=== PATIENT | male | born 1980 ===

== ENCOUNTER 2017-10-10 14:13 | Observation (INO) | payer SELFPAY ==
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
[2017-10-10] MEDS ORDERED: Sodium Chloride 0.9% 1,000 ML IV SCH (15:45)
[2017-10-10 15:51] LABS: BASO % 0.3 % (0.0-2.0); EOS # 0.1 K/uL (0.0-0.7); EOS % 0.6 % (0.0-4.0); HEMOGLOBIN 16.2 g/dL (12.0-18.0); LYMPH # 1.3 K/uL (1.0-4.3); LYMPH % 12.7 % (20.0-40.0); MEAN CELL VOLUME 87.9 fl (80.0-94.0); MEAN CORPUSCULAR HEMOGLOBIN 30.4 pg (27.0-31.0); MEAN CORPUSCULAR HGB CONC 34.6 g/dL (33.0-37.0); MEAN PLATELET VOLUME 7.5 fl (7.2-11.7); MONO # 0.7 K/uL (0.0-0.8); MONO % 6.9 % (0.0-10.0); NEUT # 7.9 K/uL (1.8-7.0); NEUT % 79.5 % (50.0-75.0); RBC 5.34 Mil/uL (4.40-5.90); WHITE BLOOD COUNT 9.9 K/uL (4.8-10.8)
[2017-10-10 15:56] LABS: SQUAMOUS EPITHIAL < 1 /hpf (0-5); URINE BILIRUBIN NEGATIVE (NEGATIVE); URINE BLOOD MODERATE (NEGATIVE); URINE CLARITY CLEAR (Clear); URINE COLOR YELLOW (YELLOW); URINE GLUCOSE (UA) NEG (Normal); URINE LEUKOCYTE ESTERASE NEG Leu/uL (Negative); URINE PROTEIN NEGATIVE (NEGATIVE); URINE UROBILINOGEN 0.2-1.0 mg/dL (0.2-1.0)
[2017-10-10 16:23] LABS: ALB/GLOB RATIO 1.5 (1.0-2.1); ALBUMIN 4.6 g/dL (3.5-5.0); CALCIUM 9.4 mg/dL (8.4-10.2)
--- NOTE | 2017-10-10 17:20 | CT ---
PROCEDURE: CT Abdomen and Pelvis without intravenous contrast HISTORY: r/o renal stone COMPARISON: None. TECHNIQUE: Helical CT of the abdomen and pelvis was performed without oral or intravenous contrast as per referring physician request Contrast dose: None Radiation dose: Total exam DLP = 262.62 mGy-cm. This CT exam was performed using one or more of the following dose reduction techniques: Automated exposure control, adjustment of the mA and/or kV according to patient size, and/or use of iterative reconstruction technique. FINDINGS: LOWER THORAX: Unremarkable. LIVER: Unremarkable. No gross lesion or ductal dilatation. GALLBLADDER AND BILE DUCTS: Unremarkable. PANCREAS: Unremarkable. No gross lesion or ductal dilatation. SPLEEN: Unremarkable. ADRENALS: Unremarkable. No mass. KIDNEYS AND URETERS: Unremarkable. No hydronephrosis. No solid [id number] right hydroureteronephrosis caused by a 4.2 x 3.6 x 4.6 mm obstructing calculus of the proximal to mid right ureter at the L3 level. Mild right perinephric reaction is identified with the right ureter normal in caliber distal to the calculus. No definite additional radiodense urolithiasis bilaterally. No left-sided obstructive uropathy. . VASCULATURE: Unremarkable. No aortic aneurysm. BOWEL: Unremarkable. No obstruction. No gross mural thickening. APPENDIX: Unremarkable. Normal appendix. PERITONEUM: Unremarkable. No free fluid. No free air. LYMPH NODES: Unremarkable. No enlarged lymph nodes. BLADDER: The urinary bladder is mildly distended but thin walled with no focal nodularity or radiodense urolithiasis. REPRODUCTIVE: Unremarkable. BONES: A minimal potential T12 anterior wedge compression fracture is questioned, indeterminate in age though probably chronic. OTHER FINDINGS: None. IMPRESSION: 1. 4.6 mm calculus is obstructing the proximal to mid right ureter causing [id number] right hydroureteronephrosis including limited right perinephric reaction. No additional radiodense urolithiasis bilaterally including urinary bladder. No left-sided obstructive uropathy. 2. Remainder the examination appears nonacute but is limited in evaluation given lack contrast agents.
[2017-10-10] MEDS ORDERED: Ciprofloxacin 400mg/200ml D5W 400 MG/200 ML BAG IVPB STA (18:55)
[2017-10-10] MEDS ORDERED: HYDROmorphone 1 mg/ml ISec IVP PRN (20:22)
[2017-10-10] MEDS ORDERED: Ciprofloxacin 400mg/200ml D5W 400 MG/200 ML BAG IVPB ONE (20:24)
[2017-10-10] MEDS: Dextrose 5%/0.9% NS 1,000 ML IV SCH (23:04)
[2017-10-11] MEDS: Dextrose 5%/0.9% NS 1,000 ML IV SCH ×2 (12:14→17:52)
[2017-10-11] MEDS ORDERED: Ciprofloxacin 400mg/200ml D5W 400 MG/200 ML BAG IVPB STA (15:19)
[2017-10-11] MEDS ORDERED: Propofol 10 mg/ml Inj (20 ML) ONE (17:30)
[2017-10-11] MEDS ORDERED: Midazolam 2 MG/2 ML VIAL ONE (17:31)
[2017-10-11] MEDS ORDERED: Lidocaine 1% 5ml Abboject IV ONE (17:31)
[2017-10-11] MEDS ORDERED: Lidocaine 2% Jelly (5 ml) TOP ONE (17:32)
[2017-10-11] MEDS ORDERED: Lactated Ringer's 500 ML IV ONE ×2 (18:30→19:00)
[2017-10-11] MEDS ORDERED: HYDROmorphone 0.5 mg/0.5 ml ISec IVP PRN (19:35)
[2017-10-11] MEDS ORDERED: Lactated Ringer's 1,000 ML IV SCH (19:45)
[2017-10-11] MEDS ORDERED: Lactated Ringer's 1,000 ML IV ONE (20:30)
[2017-10-11 23:23] VITALS: PULSE 70
[2017-10-11 23:24] VITALS: BP 120/80; RESP 19; TEMP 97.8
--- NOTE | 2017-10-12 10:15 | RAD ---
HISTORY: postop COMPARISON: Abdomen and pelvis without contrast FINDINGS: BOWEL: Normal. No obstruction. No free air. BONES: Normal. OTHER FINDINGS: A double-J right ureteral stent is in place. The slightly proximal and is partially uncoiled in contrast to to the distal coil appearance A faint calculus on the single oblique view along the proximal right ureteral stent is suggested. This is compatible with the level of CT depicted obstructing right ureteral calculus here IMPRESSION: A double-J right ureteral stent is in place. The slightly proximal and is partially uncoiled - in contrast to the distal coil appearance The proximal core all projects over the expected right renal collecting system and the distal projects over the expected bladder A faint calculus on the single oblique view along the proximal right ureteral stent is suggested. This is compatible with the level of CT depicted obstructing right ureteral calculus here
[2017-10-13 00:20] VITALS: O2SAT 100
--- NOTE | 2017-10-16 08:41 | RAD ---
PROCEDURE: Intraoperative Fluoroscopy. HISTORY: FLUOROSCOPY FINDINGS: Fluoroscopic assistance was provided for right double-J ureteral stent evaluation. Please refer to the operative report from [facility].
--- NOTE | 2017-10-25 08:43 | OP ---
DATE OF PROCEDURE: 10/11/2017 SURGEON: Barrington Barraza MD ANESTHESIOLOGIST: Cruzito Leary MD ANESTHESIA: General LMA PRE-OP DIAGNOSIS: Obstructing right ureteral calculus POST-OP DIAGNOSIS: Same PROCEDURE: Cystoscopy with stent placement INDICATION: The patient had the insertion on 10/12/2017. The patient has obstructing right ureteral calculus. DESCRIPTION OF PROCEDURE: The patient was brought to the OR, prepped and draped in the usual manner. General anesthesia given. A #21 cystourethroscope was introduced into the bladder. A 0.035 wire was inserted into the right orifice to the right ureter into the kidney. Double J stent was then placed over the wire, and the wire removed. There was good placement of the stent. POST-OP CONDITION : The patient tolerated the procedure well, left the OR in good condition. Barrington Barraza MD
== END 2017-10-12 00:15 | disposition home or self-care (01) ==
LOC: H.ER 14:13 → H.ERHOLD 18:59 → H.MEDSURG1 21:15
PROVIDERS: ADMIT Urology; ATTEND Urology
DX: N13.2 Hydronephrosis with renal and ureteral calculous obstruction (principal); F12.90 Cannabis use, unspecified, uncomplicated
CPT/HCPCS: 52332; 74018; 74176; 76000; 80053; 81003; 83690; 85025; 87086; 96361; 96365; 96366; 96375; 99283; C1758; C1769; C2617; G0378; J0744; J1170; J1885; J2250; J2270; J2405; J2704; J2765; J3010; J7030; J7042; J7120